=== PATIENT | male | born 1955 | race Caucasian/White ===

== ENCOUNTER → 2016-11-22 | Day surgery (SDC) | payer OTHER ==
[~2016-11-22] MED LIST: ALBUTEROL17 GM INH; GABAPENTIN800 MG PO; GLUCOPHAGE500 MG PO; LISINOPRIL20 MG PO; OMEPRAZOLE20 M2 PO; PRAVASTATIN SOD40 MG PO; ZYRTEC10 M1 PO
--- NOTE | ~2016-11-22 | OR ---
Unit #: [id number] #: [id number] Patient: CHELSEA BLOCK [id number] [address] [address] [id number] O MR#: [id number] NAME: CHELSEA BLOCK. ROOM: Date of Procedure: 11/22/2016 Admission Date: 11/22/2016 Surgeon: Jn Abraham M.D. : 1955 Attending Physician: nJ Abraham M.D. Primary Care Physician: Kristin Monson M.D. OPERATIVE REPORT JOB NOTE: CC: PRIMARY CARE PHYSICIAN PROCEDURES PERFORMED Colonoscopy with snare polypectomy multiple. INDICATIONS FOR PROCEDURE A 61-year-old gentleman with Hemoccult-positive stool, undergoing colonoscopy for evaluation. MEDICATIONS Monitored anesthesia. POSTOPERATIVE FINDINGS 1. 5 mm polyp, transverse colon, snared and sent for histopathology. 2. Polyp, rectum x2, one was 1.5 cm and other was 1 cm, both snared and sent for histopathology together. 3. Internal hemorrhoids. PLAN Follow up on pathology report. Repeat colonoscopy in 3 years. DESCRIPTION OF PROCEDURE The patient was explained of the procedure risks and benefits along with risks and benefits of anesthesia. He was brought to the endoscopy room. Propofol anesthesia was given. Rectal exam was done, which was normal. Colonoscope was lubricated, passed up the rectum, advanced under direct vision all the way to the cecum. Cecum was identified by ileocecal valve and appendiceal orifice. I then started to pull the scope out carefully looking. Polyps have been described above. I retroflexed in the rectum, small hemorrhoids seen. Scope was gently pulled out. He tolerated it well. No major complications were seen. Dictated by... Sincere Cota/ashley TD: 11/22/2016 14:58 JOB #: [id number] Unit #: [id number] #: [id number] Patient: CHELSEA BLOCK OPERATIVE REPORT Page 1 of 1 X Jn Abraham MD X PROCEDURE OPERATIVE NOTE
== END | disposition home or self-care (01) ==
LOC: COPS 06:26
DX: D12.8 Benign neoplasm of rectum (principal); D12.3 Benign neoplasm of transverse colon; K64.8 Other hemorrhoids; K21.9 Gastro-esophageal reflux disease without esophagitis; E11.9 Type 2 diabetes mellitus without complications; M19.90 Unspecified osteoarthritis, unspecified site; F17.210 Nicotine dependence, cigarettes, uncomplicated; J44.9 Chronic obstructive pulmonary disease, unspecified; I10 Essential (primary) hypertension; E78.5 Hyperlipidemia, unspecified; Z79.84 Long term (current) use of oral hypoglycemic drugs; Z98.41 Cataract extraction status, right eye; Z98.42 Cataract extraction status, left eye; Z79.899 Other long term (current) drug therapy
CPT/HCPCS: 82947; 88305; J2250